=== PATIENT | male | born 1970 | race Two or more races ===

== ENCOUNTER 2022-05-21 16:12 | Inpatient (IN) | payer MEDICAID ==
[~2022-05-21] VITALS: Ht 157.5 cm; Wt 79.4 kg
[2022-05-21] MEDS ORDERED: KETOROLAC 30MG/ML VIAL IV ONE (19:30)
[2022-05-21 20:25] LABS: CLARITY URINE CLEAR (CLEAR); COLOR URINE YELLOW (YELLOW); KETONES URINE NEGATIVE (NEGATIVE); LEUKOCYTE ESTERASE URINE NEGATIVE (NEGATIVE); NITRITE URINE NEGATIVE (NEGATIVE); OCCULT BLOOD URINE 1+ (NEGATIVE); PROTEIN URINE 3+ (NEGATIVE); SPECIFIC GRAVITY URINE 1.013 (1.005-1.030)
[2022-05-21 23:44] LABS: BASOPHILS % 0.7 % (0.0-2.0); EOSINOPHILS % 2.2 % (0.0-5.0); HEMATOCRIT. 31.9 % (42.0-52.0); HEMOGLOBIN. 10.9 g/dL (14.0-18.0); MEAN CORPUSCULAR VOLUME 84.6 fL (80.0-94.0); MEAN PLATELET VOLUME 7.5 fl (7.4-10.4); MONOCYTES % 7.5 % (2.0-8.0); NEUTROPHILS % 70.6 % (40.0-76.0); PLATELET 322 x1000/uL (130-400); RED BLOOD CELL COUNT 3.78 mill/uL (4.7-6.1); RED CELL DISTRIBUTION WIDTH 13.2 % (11.6-14.6)
[2022-05-21 23:47] LABS: CHLORIDE 105 mEq/L (98-107)
[2022-05-21 23:56] LABS: INR 0.9; PROTHROMBIN TIME 10.1 sec (9.6-11.0)
[2022-05-22] MEDS ORDERED: LORAZEPAM 2MG/ML CPJ IV PRN (00:15)
[2022-05-22] MEDS ORDERED: HYDROCODONE/ACETAMINOPHEN 5/325MG TABLET PO PRN (00:15)
[2022-05-22] MEDS ORDERED: ACETAMINOPHEN 325MG TABLET PO PRN ×2 (00:15)
[2022-05-22] MEDS ORDERED: DEXTROSE 50% WATER 50ML SYRINGE IV PRN (00:15)
[2022-05-22] MEDS ORDERED: NALOXONE HCL 0.4MG/ML VIAL IV PRN (00:45)
[2022-05-22] MEDS: LOSARTAN POTASSIUM 25 MG TABLET PO SCH ×2 (01:02→09:43)
[2022-05-22] MEDS: DEXT 5%/0.9% NACL 1,000 ML IV SCH ×3 (01:02→20:15)
[2022-05-22] MEDS: HYDROCHLOROTHIAZIDE 25MG TABLET PO SCH ×2 (01:02→09:43)
[2022-05-22 01:50] VITALS: BP 155/51
[2022-05-22] MEDS: BLOOD SUGAR DIAGNOSTIC STRIP TEST SCH ×3 (06:16→18:06)
[2022-05-22] MEDS: GLIMEPIRIDE 2MG TABLET PO SCH (06:20)
[2022-05-22] MEDS: INSULIN LISPRO 100 UNITS/ML SUBCUT SCH ×4 (07:25→21:30)
[2022-05-22 07:45] LABS: CHLORIDE 107 mEq/L (98-107)
[2022-05-22 08:00] VITALS: BP 158/86
[2022-05-22 09:07] LABS: HEMATOCRIT 31.3 % (42.0-52.0); HEMOGLOBIN 10.8 g/dL (14.0-18.0); MEAN CORPUSCULAR HEMOGLOBIN 29.2 pg (28.0-32.0); MEAN CORPUSCULAR VOLUME 84.6 fL (80.0-94.0); PLATELET 326 x1000/uL (130-400); RED CELL DISTRIBUTION WIDTH 13.3 % (11.6-14.6)
[2022-05-22] MEDS: METFORMIN HCL 500MG TABLET PO SCH ×2 (09:42→17:50)
[2022-05-22] MEDS: PANTOPRAZOLE SODIUM 40 MG/VIAL IV SCH (09:49)
[2022-05-22 12:00] VITALS: BP 179/87
[2022-05-22] MEDS: CLONIDINE 0.1MG TABLET PO PRN ×2 (12:34→22:29)
[2022-05-22 20:00] VITALS: BP 160/87
[2022-05-23] VITALS: BP 157/85
[2022-05-23 04:00] VITALS: BP 168/85
[2022-05-23] MEDS: CLONIDINE 0.1MG TABLET PO PRN (04:59)
[2022-05-23] MEDS: DEXT 5%/0.9% NACL 1,000 ML IV SCH (06:53)
[2022-05-23] MEDS: BLOOD SUGAR DIAGNOSTIC STRIP TEST SCH ×2 (06:53→12:51)
[2022-05-23 07:31] LABS: CHLORIDE 108 mEq/L (98-107)
[2022-05-23 07:48] LABS: HDL CHOLESTEROL 46 mg/dL (40-59); LDL CHOLESTEROL 157 mg/dL (5-100); T4 FREE 1.02 ng/dL (0.76-1.46)
[2022-05-23] MEDS: GLIMEPIRIDE 2MG TABLET PO SCH (07:49)
[2022-05-23] MEDS: METFORMIN HCL 500MG TABLET PO SCH (07:49)
[2022-05-23] MEDS: INSULIN LISPRO 100 UNITS/ML SUBCUT SCH ×2 (07:55→12:54)
[2022-05-23 08:00] VITALS: BP 162/83
[2022-05-23] MEDS: HYDROCHLOROTHIAZIDE 25MG TABLET PO SCH (08:02)
[2022-05-23] MEDS: LOSARTAN POTASSIUM 25 MG TABLET PO SCH (08:02)
[2022-05-23] MEDS: PANTOPRAZOLE SODIUM 40 MG/VIAL IV SCH (08:04)
[2022-05-23] MEDS ORDERED: ATOR20TA65 PO (08:23)
[2022-05-23] MEDS ORDERED: METF-416 PO (08:23)
[2022-05-23] MEDS ORDERED: EMPA25TA PO (08:23)
[2022-05-23] MEDS ORDERED: AMLO10TA80 PO (08:23)
[2022-05-23] MEDS ORDERED: FURO20TA4 PO (08:23)
[2022-05-23] MEDS ORDERED: GLIM4TAB36 PO (08:23)
[2022-05-23] MEDS ORDERED: HYDR25TA PO (08:23)
[2022-05-23] MEDS ORDERED: LOSA100T32 PO (08:23)
[2022-05-23] MEDS ORDERED: HYDROCHLOROTHIAZIDE 25MG TABLET PO SCH (09:00)
[2022-05-23] MEDS ORDERED: LOSARTAN POTASSIUM 25 MG TABLET PO SCH (09:00)
[2022-05-23] MEDS ORDERED: ATORVASTATIN CALCIUM 20MG TABLET PO SCH (21:00)
[2022-05-24] MEDS ORDERED: HYDROCHLOROTHIAZIDE 25MG TABLET PO SCH (09:00)
[2022-05-24] MEDS ORDERED: AMLODIPINE 10MG TABLET PO SCH (09:00)
[2022-05-24] MEDS ORDERED: LOSARTAN POTASSIUM 100 MG TABLET PO SCH (09:00)
== END 2022-05-23 16:05 | disposition home or self-care (01) | DRG 254 ==
LOC: ER 16:25 → SUPCPDRO 21:13 → MICUSO 21:14 → EDBEDREQTM 21:23 → EDBEDREQ 21:23 → 6EST 05-22 01:50
PROVIDERS: ADMIT Internal Medicine; ATTEND Internal Medicine
DX: K40.30 Unilateral inguinal hernia, with obstruction, without gangrene, not specified as recurrent (principal); E44.1 Mild protein-calorie malnutrition; E11.21 Type 2 diabetes mellitus with diabetic nephropathy; N28.89 Other specified disorders of kidney and ureter; Z20.822 Contact with and (suspected) exposure to COVID-19; I16.0 Hypertensive urgency; I10 Essential (primary) hypertension; E78.00 Pure hypercholesterolemia, unspecified; Z79.899 Other long term (current) drug therapy; Z79.84 Long term (current) use of oral hypoglycemic drugs; Z79.4 Long term (current) use of insulin
CPT/HCPCS: 36415; 74176; 76700; 80048; 80053; 80061; 81003; 82962; 83036; 84439; 84443; 85025; 85027; 93970; 99285; C9113; J1815; J1885; J7042

== ENCOUNTER 2024-08-16 02:31 | Inpatient (IN) | payer MEDICAID ==
[2024-08-16] VITALS (70 sets, daily range): BP systolic 83–148; BP diastolic 55–93; PULSE 46–99; RESP 20–24; TEMP 32.7–35.9; O2SAT 10–100
[~2024-08-16] VITALS: Ht 172.7 cm; Wt 83.6 kg
[~2024-08-16 02:31] MED LIST: AMOX-494 MT; ATOR20TA65 PO; DOCU-138 PO; FURO80TA87 MT; GLIM4TAB36 PO; HYDR50TA PO; LOSA100T33 PO; METF-416 PO; POTA-202 PO; VERA120T90 PO
[2024-08-16] MEDS: PROPOFOL 10MG/ML 100ML 100 ML IV ONE (02:53)
[2024-08-16] MEDS ORDERED: ACETAMINOPHEN 650MG SUPP PR PRN (03:00)
[2024-08-16] MEDS ORDERED: ACETAMINOPHEN 650MG/20.3ML UDC NG PRN (03:00)
[2024-08-16] MEDS ORDERED: NOREPINEPHRINE 8 MG in DEXT 5% WATER 242 ML IV PRN (03:00)
[2024-08-16 03:04] LABS: INR 1.1; PARTIAL THROMBOPLASTIN TIME 35.3 sec (23.4-31.0); PROTHROMBIN TIME 11.8 sec (9.6-11.0)
[2024-08-16] MEDS: NOREPINEPHRINE 8MG/250ML PMX 250 ML IV PRN (03:08)
[2024-08-16 03:09] LABS: CHLORIDE 101 mEq/L (98-107); POTASSIUM 4.5 mEq/L (3.5-5.1); SODIUM 136 mEq/L (136-145)
[2024-08-16 03:10] LABS: CARBON DIOXIDE 18 mEq/L (21-32)
[2024-08-16 03:11] LABS: CALCIUM 8.7 mg/dL (8.7-10.4)
[2024-08-16 03:16] LABS: ETHANOL BLOOD < 10 mg/dL (<10); UREA NITROGEN BLOOD 64 mg/dL (9-23)
[2024-08-16] MEDS: NICARDIPINE 40MG/200ML PREMIX 200 ML IV PRN ×2 (03:41→15:01)
[2024-08-16] MEDS ORDERED: ONDANSETRON HCL 4MG/2ML INJ IV ONE (03:45)
[2024-08-16] MEDS: IOHEXOL-350 100 ML BOTTLE ONE (04:23)
[2024-08-16 04:28] LABS: HEMATOCRIT. 26.2 % (42.0-52.0); HEMOGLOBIN. 8.8 g/dL (14.0-18.0); MEAN CORPUSCULAR HEMOGLOBIN 32.4 pg (28.0-32.0); MEAN CORPUSCULAR HGB CONC 33.6 g/dL (31.0-37.0); MEAN CORPUSCULAR VOLUME 96.5 fL (80.0-94.0); MEAN PLATELET VOLUME 8.1 fl (7.4-10.4); PLATELET 156 x1000/uL (130-400); RED BLOOD CELL COUNT 2.71 mill/uL (4.7-6.1); RED CELL DISTRIBUTION WIDTH 14.7 % (11.6-14.6); WHITE BLOOD COUNT 19.3 x1000/uL (4.5-11.0)
[2024-08-16 04:35] LABS: CHLORIDE 99 mEq/L (98-107); POTASSIUM 5.6 mEq/L (3.5-5.1); SODIUM 140 mEq/L (136-145)
[2024-08-16 04:36] LABS: CALCIUM 7.8 mg/dL (8.7-10.4); CARBON DIOXIDE 24 mEq/L (21-32)
[2024-08-16 04:41] LABS: GLUCOSE 217 mg/dL (70-105); UREA NITROGEN BLOOD 69 mg/dL (9-23)
[2024-08-16 04:43] LABS: PHOSPHORUS 7.5 mg/dL (2.5-4.9)
[2024-08-16 05:12] LABS: LACTIC ACID 9.5 mmol/L (0.4-2.0)
[2024-08-16 05:13] LABS: GLUCOSE 376 mg/dL (70-105)
[2024-08-16 05:13] LABS: BG BASE EXCESS -3.4 mmol/L (-2.0-3.0); BG CARBOXYHEMOGLOBIN 0.5 % (0.5-1.5); BG DEOXYHEMOGLOBIN 1.8 % (0.0-5.0); BG FRACTION INSPIRED OXYGEN 100; BG METHEMOGLOBIN 0.3 % (0.5-1.5); BG OXYGEN SATURATION 98.2 % (94.0-98.0); BG OXYHEMOGLOBIN 97.4 % (94.0-98.0); BG PCO2 41.1 mmHg (35.0-48.0); BG PH 7.347 (7.350-7.450); BG PO2 119.4 mmHg (83.0-108.0); BG SAMPLE SITE ALINE; BG TOTAL HEMOGLOBIN 11.7 g/dL (13.5-17.5); BG TOTAL RESPIRATORY RATE 20 b/min; BG VENT MODE VENT - AC
[2024-08-16 05:14] LABS: CREATININE 8.3 mg/dL (0.6-1.3)
[2024-08-16 05:15] LABS: TROPONIN I HIGH SENSITIVITY 114 ng/L (3.0-53)
[2024-08-16 05:20] LABS: HEMATOCRIT. 26.6 % (42.0-52.0); HEMOGLOBIN. 8.8 g/dL (14.0-18.0); MEAN CORPUSCULAR HEMOGLOBIN 32.2 pg (28.0-32.0); MEAN CORPUSCULAR HGB CONC 33.2 g/dL (31.0-37.0); PLATELET 153 x1000/uL (130-400); RED BLOOD CELL COUNT 2.75 mill/uL (4.7-6.1); RED CELL DISTRIBUTION WIDTH 14.7 % (11.6-14.6); WHITE BLOOD COUNT 19.2 x1000/uL (4.5-11.0)
[2024-08-16] MEDS: LEVETIRACETAM 1000MG PREMIX 100 ML IV ONE (05:29)
[2024-08-16 05:32] LABS: DIFFERENTIAL COMMENT 1
[2024-08-16 05:32] LABS: DIFFERENTIAL COMMENT 1
[2024-08-16] MEDS: ONDANSETRON HCL 4MG/2ML INJ IV NR (05:46)
[2024-08-16] MEDS: INSULIN REGULAR (HUMULIN R) 1000UNITS/10ML VIAL SUBCUT NR (05:56)
[2024-08-16] MEDS: PIPERACILLIN/TAZO 3.375G/50ML 50 ML IV NR (05:56)
[2024-08-16] MEDS: VANCOMYCIN 1G PREMIX 200 ML IV NR (06:05)
[2024-08-16 07:05] LABS: PLATELET ESTIMATE NORMAL
[2024-08-16 07:09] LABS: PLATELET ESTIMATE NORMAL
[2024-08-16] MEDS ORDERED: ATROPINE SULFATE 1MG/10ML SYR ONE (08:00)
[2024-08-16 08:58] LABS: BG BASE EXCESS -1.5 mmol/L (-2.0-3.0); BG CARBOXYHEMOGLOBIN 0.5 % (0.5-1.5); BG DEOXYHEMOGLOBIN 0.5 % (0.0-5.0); BG FRACTION INSPIRED OXYGEN 100; BG HCO3 ACT 21.3 mmol/L (21.0-28.0); BG METHEMOGLOBIN 0.3 % (0.5-1.5); BG OXYGEN SATURATION 99.5 % (94.0-98.0); BG OXYHEMOGLOBIN 98.7 % (94.0-98.0); BG PCO2 29.8 mmHg (35.0-48.0); BG PH 7.473 (7.350-7.450); BG PO2 183.7 mmHg (83.0-108.0); BG SAMPLE SITE RIGHT RADIAL; BG TOTAL HEMOGLOBIN 11.2 g/dL (13.5-17.5); BG VENT MODE VENT - AC
[2024-08-16] MEDS ORDERED: ONDANSETRON HCL 4MG/2ML INJ IV PRN (10:15)
[2024-08-16] MEDS ORDERED: NITROGLYCERIN 50MG PREMIX 250 ML IV PRN (10:15)
[2024-08-16] MEDS: LEVETIRACETAM 500MG PREMIX 100 ML IV SCH (11:53)
[2024-08-16] MEDS: PANTOPRAZOLE SODIUM 40 MG/VIAL IV SCH (11:53)
[2024-08-16] MEDS: SODIUM ZIRCONIUM CYCLOSILICATE 10GM/PACKET PO NR (11:54)
[2024-08-16] MEDS ORDERED: DOPAMINE 400MG/250ML PREMIX 250 ML IV PRN (12:00)
[2024-08-16] MEDS: LACTATED RINGERS 1,000 ML IV SCH (12:02)
[2024-08-16] MEDS: PIPERACILLIN/TAZO 3.375G/50ML 50 ML IV SCH (12:28)
[2024-08-16] MEDS: CALCIUM CHLORIDE 1GM/10ML SYR IV NR (12:35)
[2024-08-16] MEDS ORDERED: PANT40TA51 MT (19:46)
[2024-08-16] MEDS ORDERED: CLOP75TA33 MT (19:46)
[2024-08-16] MEDS ORDERED: ATOR-2 MT (19:46)
[2024-08-16] MEDS ORDERED: NIFE90TA60 MT (19:46)
[2024-08-16] MEDS ORDERED: HYDR50TA40 MT (19:46)
[2024-08-16] MEDS ORDERED: MINO2.5T2 MT (19:46)
[2024-08-16] MEDS ORDERED: LEVETIRACETAM 500MG in NACL 100ML PREMIX IV SCH (21:00)
[2024-08-16 21:31] LABS: HEPATITIS B SURFACE ANTIGEN NEGATIVE (Negative)
[2024-08-16] MEDS: VANCOMYCIN 750MG PREMIX 150 ML IV SCH (21:31)
[2024-08-16 21:51] LABS: HEPATITIS A AB IGM NEGATIVE (Negative)
[2024-08-16 21:52] LABS: HEPATITIS B CORE AB IGM NEGATIVE (Negative)
[2024-08-16 21:53] LABS: HEPATITIS C AB NON REACTIVE (Neg) (Negative)
[2024-08-17] VITALS (65 sets, daily range): BP systolic 57–171; BP diastolic 21–114; PULSE 56–114; RESP 12–24; TEMP 95.1–98.1; O2SAT 95–100
[2024-08-17 06:54] LABS: BASOPHILS % 0.8 % (0.0-2.0); EOSINOPHILS % 3.4 % (0.0-5.0); HEMATOCRIT. 24.9 % (42.0-52.0); HEMOGLOBIN. 8.3 g/dL (14.0-18.0); LYMPHOCYTES % 12.2 % (20.0-50.0); MEAN CORPUSCULAR HEMOGLOBIN 32.1 pg (28.0-32.0); MEAN CORPUSCULAR HGB CONC 33.5 g/dL (31.0-37.0); MEAN CORPUSCULAR VOLUME 95.6 fL (80.0-94.0); MEAN PLATELET VOLUME 9.1 fl (7.4-10.4); MONOCYTES % 6.4 % (2.0-8.0); NEUTROPHILS % 77.2 % (40.0-76.0); PLATELET 137 x1000/uL (130-400); RED CELL DISTRIBUTION WIDTH 14.7 % (11.6-14.6); WHITE BLOOD COUNT 11.1 x1000/uL (4.5-11.0)
[2024-08-17 07:08] LABS: CHLORIDE 103 mEq/L (98-107); POTASSIUM 4.4 mEq/L (3.5-5.1); SODIUM 141 mEq/L (136-145)
[2024-08-17 07:11] LABS: CALCIUM 8.1 mg/dL (8.7-10.4); CARBON DIOXIDE 21 mEq/L (21-32)
[2024-08-17 07:16] LABS: ALANINE AMINOTRANSFERASE 58 IU/L (10-49); GLUCOSE 76 mg/dL (70-105); UREA NITROGEN BLOOD 86 mg/dL (9-23)
[2024-08-17 07:18] LABS: ALBUMIN 3.1 g/dL (3.2-4.8); ASPARTATE AMINOTRANSFERASE 32 IU/L (<34); BILIRUBIN DIRECT 0.2 mg/dL (<=3.0); BILIRUBIN TOTAL 0.3 mg/dL (0.1-1.0); PHOSPHORUS 3.1 mg/dL (2.5-4.9); PROTEIN TOTAL 5.6 g/dL (6.0-8.3)
[2024-08-17 07:19] LABS: CREATININE 8.4 mg/dL (0.6-1.3)
[2024-08-17 08:48] LABS: BG BASE EXCESS -1.7 mmol/L (-2.0-3.0); BG CARBOXYHEMOGLOBIN 1.5 % (0.5-1.5); BG DEOXYHEMOGLOBIN 5.2 % (0.0-5.0); BG FRACTION INSPIRED OXYGEN 50; BG HCO3 ACT 19.6 mmol/L (21.0-28.0); BG METHEMOGLOBIN 0.3 % (0.5-1.5); BG OXYGEN SATURATION 94.7 % (94.0-98.0); BG PCO2 22.5 mmHg (35.0-48.0); BG PH 7.559 (7.350-7.450); BG PO2 66.8 mmHg (83.0-108.0); BG SAMPLE SITE RIGHT RADIAL; BG TOTAL HEMOGLOBIN 8.6 g/dL (13.5-17.5); BG VENT MODE VENT - AC
[2024-08-17 10:03] LABS: BG CARBOXYHEMOGLOBIN 0.6 % (0.5-1.5); BG DEOXYHEMOGLOBIN 2.1 % (0.0-5.0); BG FRACTION INSPIRED OXYGEN 100; BG HCO3 ACT 20.4 mmol/L (21.0-28.0); BG METHEMOGLOBIN 0.3 % (0.5-1.5); BG OXYGEN SATURATION 97.9 % (94.0-98.0); BG PH 7.284 (7.350-7.450); BG PO2 131.7 mmHg (83.0-108.0); BG SAMPLE SITE RIGHT RADIAL; BG TOTAL HEMOGLOBIN 10.2 g/dL (13.5-17.5); BG VENT MODE VENT - AC
[2024-08-17 11:56] LABS: BG BASE EXCESS -3.3 mmol/L (-2.0-3.0); BG CARBOXYHEMOGLOBIN 0.3 % (0.5-1.5); BG DEOXYHEMOGLOBIN 6.7 % (0.0-5.0); BG FRACTION INSPIRED OXYGEN 100; BG METHEMOGLOBIN 0.3 % (0.5-1.5); BG OXYGEN SATURATION 93.3 % (94.0-98.0); BG OXYHEMOGLOBIN 92.7 % (94.0-98.0); BG PCO2 34.6 mmHg (35.0-48.0); BG PO2 74.1 mmHg (83.0-108.0); BG SAMPLE SITE RIGHT RADIAL; BG TOTAL HEMOGLOBIN 10.6 g/dL (13.5-17.5); BG VENT MODE VENT - AC
[2024-08-17] MEDS ORDERED: ADENOSINE 3 MG/ML 2ML VIAL IV ONE (16:00)
== END 2024-08-17 22:00 | DRG 44 ==
LOC: ER 02:31 → MICUSO 04:37 → ENRESERV 08:03
PROVIDERS: ADMIT Internal Medicine; ATTEND Internal Medicine
PROC: 5A1D70Z Performance of Urinary Filtration, Intermittent, Less than 6 Hours Per Day (ICD-10-PCS; principal; 2024-08-16)
PROC: 5A1945Z Respiratory Ventilation, 24-96 Consecutive Hours (ICD-10-PCS; 2024-08-16)
PROC: 0BH17EZ Insertion of Endotracheal Airway into Trachea, Via Natural or Artificial Opening (ICD-10-PCS; 2024-08-16)
PROC: 5A12012 Performance of Cardiac Output, Single, Manual (ICD-10-PCS; 2024-08-17)
PROC: 4A00X4Z Measurement of Central Nervous Electrical Activity, External Approach (ICD-10-PCS; 2024-08-17)
DX: I60.9 Nontraumatic subarachnoid hemorrhage, unspecified (principal); I46.9 Cardiac arrest, cause unspecified; J96.01 Acute respiratory failure with hypoxia; G93.6 Cerebral edema; D64.9 Anemia, unspecified; E11.22 Type 2 diabetes mellitus with diabetic chronic kidney disease; I13.2 Hypertensive heart and chronic kidney disease with heart failure and with stage 5 chronic kidney disease, or end stage renal disease; N18.6 End stage renal disease; I50.9 Heart failure, unspecified; G93.40 Encephalopathy, unspecified; E87.5 Hyperkalemia; E87.20 Acidosis, unspecified; D72.829 Elevated white blood cell count, unspecified; E78.00 Pure hypercholesterolemia, unspecified; G91.9 Hydrocephalus, unspecified; I61.3 Nontraumatic intracerebral hemorrhage in brain stem; Z79.02 Long term (current) use of antithrombotics/antiplatelets; Z82.49 Family history of ischemic heart disease and other diseases of the circulatory system; Z86.73 Personal history of transient ischemic attack (TIA), and cerebral infarction without residual deficits; Z99.2 Dependence on renal dialysis
CPT/HCPCS: 31500; 31720; 36415; 36600; 70496; 70498; 71045; 78610; 80048; 80076; 80320; 82375; 82805; 82962; 83605; 83735; 83880; 84100; 84484; 85025; 86705; 86709; 87340; 90935; 92950; 93005; 93970; 94002; 94003; 94070; 94664; 95816; 98960; 99291; A4606; A6261; A9512; J0153; J0461; J1265; J1815; J1953; J2405; J2470; J2543; J2704; J3370; J3490; J7120; Q9967; G0480